=== PATIENT | male | born 1995 | race Caucasian/White ===

== ENCOUNTER 2017-02-18 00:26 | Emergency (ER) | payer BC ==
[2017-02-18 00:35] VITALS: BP 147/70; PULSE 94; RESP 16; TEMP 99
[2017-02-18] MEDS ORDERED: DIPH,PERTUS(ACELL)TETVAC-LF 0.5 ML VIAL IM ONE (00:40)
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
== END 2017-02-18 01:22 | disposition home or self-care (01) ==
LOC: EC 00:26
DX: S01.511A Laceration without foreign body of lip, initial encounter (principal); S80.211A Abrasion, right knee, initial encounter; S40.212A Abrasion of left shoulder, initial encounter; J45.909 Unspecified asthma, uncomplicated; F17.200 Nicotine dependence, unspecified, uncomplicated; Z79.899 Other long term (current) drug therapy; Z23 Encounter for immunization; Y04.0XXA Assault by unarmed brawl or fight, initial encounter; Y92.009 Unspecified place in unspecified non-institutional (private) residence as the place of occurrence of the external cause
CPT/HCPCS: 12013; 90471; 90715; 99283

== ENCOUNTER 2023-08-15 02:10 | Emergency (ER) | payer BC ==
[2023-08-15 02:19] VITALS: RESP 18; TEMP 98.2
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
[2023-08-15 03:24] VITALS: BP 130/77; PULSE 97
== END 2023-08-15 03:20 | disposition home or self-care (01) ==
LOC: EC 02:10
DX: Z02.89 Encounter for other administrative examinations (principal); J45.909 Unspecified asthma, uncomplicated; F12.90 Cannabis use, unspecified, uncomplicated
CPT/HCPCS: 99283